=== PATIENT | female | born 1985 | race American Indian/Alaskan Native ===

== ENCOUNTER 2018-04-07 21:10 | Emergency (ER) | payer BC, MEDICAID ==
--- NOTE | 2018-04-07 21:22 | Emergency Department Report ---
Chief Complaint: Wound/Laceration Stated Complaint: LEFT HAND FINGER LACERATIONS Time Seen by Provider: 04/07/18 21:18 - HPI History of Present Illness: Pt c/o a laceration just [employer] to the left thumb, and an abrasion left, middle finger pt is right hand dominant pt was opening green beans and got cut by the lid of the can last tetanus 2016 after having her child pt has a hx of HTN and takes lisinopril-hctz combo, states she took her medication today - Exam Vital Signs: Vital Signs 04/07/18 21:17 Temperature 98.2 F Pulse Rate 81 Respiratory 18 Rate Blood Pressure 173/115 O2 Sat by Pulse 99 Oximetry MSE screening note: Focused history and physical exam performed. ED Disposition for MSE Condition: Stable
[2018-04-07] MEDS ORDERED: KEFLEX PO ONE (22:16)
[2018-04-07] MEDS ORDERED: ULTRAM PO ONE (22:17)
--- NOTE | 2018-04-07 22:21 | Emergency Department Report ---
ED Laceration HPI - HPI Chief Complaint: Wound/Laceration Stated Complaint: LEFT HAND FINGER LACERATIONS Time Seen by Provider: 04/07/18 21:18 Occurred When: Today Location: Upper Extremity Severity: moderate Tetanus Status: Up to Date Laceration Symptoms: Yes Pain, No Foreign Body Sensation, No Numbness, No Weakness Other History: left volar thumb laceration 2 cm versus food can. bleeding controlled via direct pressure Tetanus up to date. ED Review of Systems ROS: Stated complaint: LEFT HAND FINGER LACERATIONS Other details as noted in HPI Constitutional: denies: chills, fever Eyes: denies: eye pain, eye discharge, vision change ENT: denies: ear pain, throat pain Respiratory: denies: cough, shortness of breath, wheezing Cardiovascular: denies: chest pain, palpitations Endocrine: no symptoms reported Gastrointestinal: denies: abdominal pain, nausea, diarrhea Genitourinary: denies: urgency, dysuria, discharge Musculoskeletal: denies: back pain, joint swelling, arthralgia Skin: other (left thumb laceration ) Neurological: denies: headache, weakness, paresthesias Psychiatric: denies: anxiety, depression Hematological/Lymphatic: denies: easy bleeding, easy bruising ED Past Medical Hx - Past Medical History Previous Medical History?: Yes Hx Hypertension: Yes (Patient taking Methyldopa) Hx Diabetes: No Hx Deep Vein Thrombosis: No Hx Renal Disease: No Hx Sickle Cell Disease: No Hx Seizures: No Hx Asthma: No Hx HIV: No - Surgical History Past Surgical History?: No - Social History Smoking Status: Never Smoker Substance Use Type: None - Medications Home Medications: Home Medications Medication Instructions Recorded Confirmed Last Taken Type Cephalexin [Keflex] 500 mg PO TID 10 Days #30 capsule 04/07/18 Unknown Rx Lisinopril/Hydrochlorothiazide 1 tab PO QDAY 04/07/18 04/07/18 04/07/18 History [Zestoretic 10-12.5 mg] Tramadol HCl [Ultram] 50 mg PO Q6H PRN #12 tablet 04/07/18 Unknown Rx Laceration Physical Exam - Exam General: Vital signs noted. No distress. Alert and acting appropriately. Wound Length (cm): 2 Laceration Location: Upper Extremity Laceration Exam: Yes Normal Distal CMS, No Foreign Body, No Exposed Tendon, Vessel, or Nerve, No Tendon Injury ED Course Vital Signs 04/07/18 21:17 Temperature 98.2 F Pulse Rate 81 Respiratory 18 Rate Blood Pressure 173/115 O2 Sat by Pulse 99 Oximetry - Laceration /Wound Repair Left Palm Finger Wound Location: upper extremity Wound Length (cm): 2 Wound's Depth, Shape: superficial Wound Explored: clean Irrigated w/ Saline (ccs): 20 Betadine Prep?: Yes Anesthesia: 1% Lidocaine Volume Anesthetic (ccs): 1 Wound Debrided: none required Wound Repaired With: sutures Suture Size/Type: 4:0, proline Number of Sutures: 5 (running ) Progress: left thumb laceration wound cleaned with betadine solution anesthesia with 1% lidocaine 1 cc, wound irrigated with sterile saline 20 ccs, close wtih 4.0 proline x 5 sutures running all bleeding controlled rom intact CMS intact there is no nerve tendon or mucle damage, sterile dressing applied pt given wound care instructions. ED Medical Decision Making - Medical Decision Making wound closed see procedure note, all bleeding controlled , pt given wound care instructions, tetanus is up to date, there is no nerver tendon or muscle involvment, will dc to home with rx for keflex, ultram, pt will follow up with pcp in 2 days for wound check and 10 days for suture removal, pt verbalized agreement and understanding of same. Critical care attestation.: If time is entered above; I have spent that time in minutes in the direct care of this critically ill patient, excluding procedure time. ED Disposition Clinical Impression: Laceration of thumb Qualifiers: Encounter type: initial encounter Damage to nail status: without damage Foreign body presence: without foreign body Laterality: left Qualified Code(s): S61.012A - Laceration without foreign body of left thumb without damage to nail, initial encounter Disposition: DC-01 TO HOME OR SELFCARE Is pt being admited?: No Does the pt Need Aspirin: No Condition: Stable Instructions: Laceration (ED), Suture Care (ED) Prescriptions: Cephalexin [Keflex] 500 mg PO TID 10 Days #30 capsule Tramadol HCl [Ultram] 50 mg PO Q6H PRN #12 tablet PRN Reason: pain Referrals: [facility] DIAZ [Other] - 3-5 Days Forms: Work/School Release Form(ED) Time of Disposition: 22:36
[2018-04-07 22:52] VITALS: BP 138/89
== END 2018-04-07 22:51 | disposition home or self-care (01) ==
LOC: ED 21:10
DX: S61.012A Laceration without foreign body of left thumb without damage to nail, initial encounter (principal); W45.8XXA Other foreign body or object entering through skin, initial encounter; Y93.89 Activity, other specified; Y92.89 Other specified places as the place of occurrence of the external cause; Y99.8 Other external cause status